=== PATIENT | male | born 1970 | race Caucasian/White ===

== ENCOUNTER 2020-11-29 15:27 | Outpatient (CLI) | payer OTHER, SELFPAY ==
--- NOTE | 2020-11-29 15:36 | XR_ITS ---
WS: [id number] LEFT KNEE: 3 VIEW(S) TECHNIQUE: AP, oblique(s) and lateral. HISTORY: LEFT KNEE PAIN COMPARISON: None available. No fracture or dislocation. No joint space narrowing or osteophytes. No joint effusion. There are a few scattered vascular calcifications posterior to the tibia. XR/XR knee LT 3V* [id number] IMPRESSION: Normal LEFT knee.
== END 2020-11-29 15:28 | disposition home or self-care (01) ==
PROVIDERS: Visit Provider Clinical Nurse Specialist Adult Health
DX: M25.562 Pain in left knee (principal)
CPT/HCPCS: 73562

== ENCOUNTER 2022-10-04 14:16 | Outpatient (CLI) | payer OTHER, SELFPAY ==
[2022-10-04 15:13] LABS: Basophils % 0.4 %; Eosinophils # 0.3 10^3/uL (0.0-0.8); Eosinophils % 3.5 %; Hematocrit 37.8 % (42.0-52.0); Hemoglobin 12.7 g/dL (11.7-16.6); Lymphocytes # 2.3 10^3/uL (0.8-4.8); Lymphocytes % 25.5 %; Mean Corpuscular HGB Conc 33.6 g/dL (30.0-36.0); Mean Corpuscular Hemoglobin 32.7 pg (28.0-34.0); Mean Corpuscular Volume 97.4 fl (80-94); Mean Platelet Volume 9.1 fL (7.4-10.4); Monocytes # 0.9 10^3/uL (0.2-0.9); Monocytes % 9.7 %; Neutrophils # 5.48 10^3/uL (1.8-7.7); Neutrophils % 60.5 %; Nucleated Red Blood Cells % 0 %; Platelet Count 184 10^3/cmm (130-400); Red Blood Count 3.88 10^6/uL (4.1-5.3); Red Cell Distribution Width 17.8 % (12.1-15.1); White Blood Count 9.1 10^3/uL (4.0-10.0)
[2022-10-04 15:33] LABS: Alanine Aminotransferase 33 U/L (0-41); Albumin Level 4.4 g/dL (3.5-5.2); Alkaline Phosphatase 82 U/L (40-130); Aspartate Amino Transferase 22 U/L (0-40); Blood Urea Nitrogen 13 mg/dL (6-20); Calcium 9.3 mg/dL (8.5-10.5); Carbon Dioxide 24 mmol/L (22-29); Chloride 105 mmol/L (98-107); Globulin 2.5 g/dL (1.3-4.6); Glomerular Filtration Rate 117.5 mL/min (90-130); Glucose 105 mg/dL (65-115); Osmolality Calculated 292 mOsm/kg (285-295); Sodium 141 mmol/L (136-145); Total Bilirubin 0.5 mg/dL (0.15-1.2); Total Protein 6.9 g/dL (6.6-8.7)
== END 2022-10-04 14:17 | disposition home or self-care (01) ==
PROVIDERS: Visit Provider Internal Medicine
DX: C71.9 Malignant neoplasm of brain, unspecified (principal)
CPT/HCPCS: 36415; 80053; 85025

== ENCOUNTER 2022-10-11 14:16 | Outpatient (RCR) | payer OTHER, SELFPAY ==
[2022-10-11 14:49] LABS: Basophils % 0.2 %; Eosinophils # 0.2 10^3/uL (0.0-0.8); Eosinophils % 2.8 %; Hematocrit 38.4 % (42.0-52.0); Hemoglobin 12.9 g/dL (11.7-16.6); Lymphocytes % 22.8 %; Mean Corpuscular HGB Conc 33.6 g/dL (30.0-36.0); Mean Corpuscular Hemoglobin 32.6 pg (28.0-34.0); Mean Platelet Volume 8.9 fL (7.4-10.4); Monocytes # 0.8 10^3/uL (0.2-0.9); Monocytes % 9.2 %; Neutrophils # 5.61 10^3/uL (1.8-7.7); Neutrophils % 64.5 %; Nucleated Red Blood Cells % 0 %; Platelet Count 200 10^3/cmm (130-400); Red Blood Count 3.96 10^6/uL (4.1-5.3); Red Cell Distribution Width 15.9 % (12.1-15.1); White Blood Count 8.7 10^3/uL (4.0-10.0)
[2022-10-11 15:08] LABS: Alanine Aminotransferase 23 U/L (0-41); Albumin Level 4.3 g/dL (3.5-5.2); Alkaline Phosphatase 81 U/L (40-130); Anion Gap 15.8 (5-19); Aspartate Amino Transferase 17 U/L (0-40); Blood Urea Nitrogen 13 mg/dL (6-20); Calcium 9.1 mg/dL (8.5-10.5); Carbon Dioxide 24 mmol/L (22-29); Chloride 104 mmol/L (98-107); Globulin 2.5 g/dL (1.3-4.6); Glomerular Filtration Rate 117.5 mL/min (90-130); Glucose 124 mg/dL (65-115); Osmolality Calculated 292 mOsm/kg (285-295); Potassium 3.8 mmol/L (3.5-5.1); Sodium 140 mmol/L (136-145); Total Bilirubin 0.4 mg/dL (0.15-1.2); Total Protein 6.8 g/dL (6.6-8.7)
== END 2022-10-13 23:59 | disposition home or self-care (01) ==
LOC: LAB 14:16
PROVIDERS: Visit Provider Internal Medicine
DX: C71.9 Malignant neoplasm of brain, unspecified (principal)
CPT/HCPCS: 80053; 85025

== ENCOUNTER 2022-10-18 14:19 | Outpatient (RCR) | payer OTHER, SELFPAY ==
[2022-10-18 14:41] LABS: Basophils % 0.3 %; Eosinophils # 0.3 10^3/uL (0.0-0.8); Hematocrit 39.1 % (42.0-52.0); Lymphocytes # 2.1 10^3/uL (0.8-4.8); Lymphocytes % 26.8 %; Mean Corpuscular HGB Conc 33.2 g/dL (30.0-36.0); Mean Corpuscular Hemoglobin 32.7 pg (28.0-34.0); Mean Corpuscular Volume 98.5 fl (80-94); Mean Platelet Volume 8.6 fL (7.4-10.4); Monocytes # 0.8 10^3/uL (0.2-0.9); Neutrophils # 4.51 10^3/uL (1.8-7.7); Neutrophils % 58.4 %; Nucleated Red Blood Cells % 0 %; Platelet Count 186 10^3/cmm (130-400); Red Blood Count 3.97 10^6/uL (4.1-5.3); White Blood Count 7.7 10^3/uL (4.0-10.0)
[2022-10-18 15:04] LABS: Alanine Aminotransferase 27 U/L (0-41); Albumin Level 4.2 g/dL (3.5-5.2); Alkaline Phosphatase 79 U/L (40-130); Aspartate Amino Transferase 22 U/L (0-40); Blood Urea Nitrogen 13 mg/dL (6-20); Calcium 9.4 mg/dL (8.5-10.5); Carbon Dioxide 25 mmol/L (22-29); Chloride 105 mmol/L (98-107); Globulin 2.4 g/dL (1.3-4.6); Glomerular Filtration Rate 117.5 mL/min (90-130); Glucose 126 mg/dL (65-115); Osmolality Calculated 294 mOsm/kg (285-295); Sodium 141 mmol/L (136-145); Total Bilirubin 0.4 mg/dL (0.15-1.2); Total Protein 6.6 g/dL (6.6-8.7)
== END 2022-11-13 23:59 | disposition home or self-care (01) ==
LOC: LAB 14:19
PROVIDERS: Visit Provider Internal Medicine
DX: C71.9 Malignant neoplasm of brain, unspecified (principal)
CPT/HCPCS: 80053; 85025

== ENCOUNTER 2022-12-01 07:47 | Emergency (ER) | payer OTHER, SELFPAY ==
--- NOTE | 2022-12-01 07:51 | ED_ITS ---
HPI - Fever General: Chief Complaint: Fever Stated Complaint: cancer pt w/fever sent in by [facility] doctor Time Seen by Provider: 12/01/22 07:50 History of Present Illness: Mr Serrano is a 52-year-old gentleman with significant past medical history of glioblastoma on chemotherapy with Temodar presenting to the emergency department due to fever. He has been at his baseline health and developed fever last night with temperature of 101. Feels generally unwell and fatigued however that has been somewhat ongoing. He denies specific focal infectious symptoms. Denies sick contacts. Last dose of chemotherapy was approximately 1 month ago and he is scheduled to have chemotherapy tomorrow. No other specific changes in health, exacerbating, or alleviating factors identified. Prior biopsy and July. No recent surgical procedures. Sounds like lesion is nonresectable. Patient currently follows with the [facility] through [facility] with your oncologist Dr. Pankaj Lopez. Pertinent past history: immunosuppression (Chemotherapy) and other Onset (ago): hour(s) Exacerbating factors: nothing Relieving factors: nothing Associated symptoms: Reports no associated symptoms Review of Systems General: Reports: 10 or more systems reviewed and unremarkable except in HPI and below PFSH ED PFSH: Medical History Glioblastoma Physical Exam Const: COMMON NORMALS: alert GENERAL APPEARANCE: cooperative and well developed HENMT: COMMON NORMALS: normocephalic and atraumatic HEAD & SCALP: normocephalic and atraumatic Eye: COMMON NORMALS: conjunctivae normal CONJUNCTIVA: Yes conjunctivae normal SCLERA: sclerae normal Neck/C-Spine: COMMON NORMALS: supple GENERAL: Yes trachea midline Resp: COMMON NORMALS: clear to auscultation bilaterally EFFORT & INSPECTION: Yes able to speak in complete sentences AUSCULTATION: clear to auscultation bilaterally Cardio: COMMON NORMALS: regular rate and regular rhythm RATE: regular rate RHYTHM: regular rhythm GI: COMMON NORMALS: Soft to palpation PALPATION: Yes Soft to palpation and No Tenderness to palpation present (GI) Extremity: GENERAL: Yes normal exam except as noted and No edema Neuro: COMMON NORMALS: moves all extremities SENSORIUM/ORIENTATION: Yes alert and No Orientation impaired Psych: COMMON NORMALS: mental status grossly normal and Normal thought process present THOUGHT PROCESS: Normal thought process present Course Vital Signs: Vital signs: Vital Signs Temperature 98.0 F 12/01/22 11:10 Pulse Rate 86 12/01/22 11:10 Respiratory Rate 16 12/01/22 11:10 Blood Pressure 115/77 12/01/22 11:10 Pulse Oximetry 94 12/01/22 11:10 Oxygen Delivery Me thod Room Air 12/01/22 07:54 MDM - Fever Medical Decision Making 52-year-old gentleman with history of cancer presenting due to fever. Exam as above. Patient is nontoxic and there is no meningismus. Labs notable for no leukocytosis, normal hemoglobin and platelet count. Metabolic panel obtained with dehydration. No UTI. Viral panel negative. Chest x-ray with patchy left lung base possible infiltrate, no pneumothorax. Patient does not have evidence of sepsis and last dose of chemotherapy was 1 month ago. Discussed with oncology team, we will treat with Levaquin and strict return precautions/follow-up instructions given. The results of ED evaluation were discussed with the patient including prescriptions and/or symptomatic cares (if applicable) including appropriate and responsible use, followup plan, and return precautions. The patient verbalized understanding and felt safe for discharge. Medical Records I reviewed the patient's medical records. Lab Data I reviewed the patient's lab results. 12/01/22 08:43 12/01/22 08:25 Radiology Impressions Chest X-Ray 12/01/22 08:02 IMPRESSION: There is some patchy bandlike opacification indicative of early inflammation of the left lung base. No lobar type consolidation or cardiac decompensation is appreciated. Laboratory Results WBC 8.7 10^3/uL (4.0-10.0) 12/01/22 08:43 RBC 4.54 10^6/uL (4.1-5.3) 12/01/22 08:43 Hgb 14.9 g/dL (11.7-16.6) 12/01/22 08:43 Hct 43.4 % (42.0-52.0) 12/01/22 08:43 MCV 95.6 fl (80-94) H 12/01/22 08:43 MCH 32.8 pg (28.0-34.0) 12/01/22 08:43 MCHC 34.3 g/dL (30.0-36.0) 12/01/22 08:43 RDW 12.2 % (12.1-15.1) 12/01/22 08:43 Plt Count 151 10^3/cmm (130-400) 12/01/22 08:43 MPV 8.8 fL (7.4-10.4) 12/01/22 08:43 Neut % (Auto) 66.1 % 12/01/22 08:43 Lymph % (Auto) 17.6 % 12/01/22 08:43 [place] % (Auto) 11.8 % 12/01/22 08:43 Eos % (Auto) 3.2 % 12/01/22 08:43 Baso % (Auto) 0.7 % 12/01/22 08:43 Neut # (Auto) 5.73 10^3/uL (1.8-7.7) 12/01/22 08:43 Lymph # (Auto) 1.5 10^3/uL (0.8-4.8) 12/01/22 08:43 [place] # (Auto) 1.0 10^3/uL (0.2-0.9) H 12/01/22 08:43 Eos # (Auto) 0.3 10^3/uL (0.0-0.8) 12/01/22 08:43 Baso # (Auto) 0.1 10^3/uL (0.0-0.1) 12/01/22 08:43 Nucleated RBC % (auto) 0 % 12/01/22 08:43 Nucleated RBCs # 0.0 /100WBC 12/01/22 08:43 Sodium 131 mmol/L (136-145) L 12/01/22 08:25 Potassium 4.1 mmol/L (3.5-5.1) 12/01/22 08:25 Chloride 97 mmol/L (98-107) L 12/01/22 08:25 Carbon Dioxide 20 mmol/L (22-29) L 12/01/22 08:25 Anion Gap 18.1 (5-19) 12/01/22 08:25 BUN 15 mg/dL (6-20) 12/01/22 08:25 Creatinine 0.8 mg/dL (0.7-1.2) 12/01/22 08:25 GFR Calculation 100.7 mL/min (90-130) 12/01/22 08:25 Glucose 87 mg/dL (65-115) 12/01/22 08:25 Calculated Osmolality 272 mOsm/kg (285-295) L 12/01/22 08:25 Calcium 9.3 mg/dL (8.5-10.5) 12/01/22 08:25 Total Bilirubin 0.3 mg/dL (0.15-1.2) 12/01/22 08:25 AST 21 U/L (0-40) 12/01/22 08:25 ALT 28 U/L (0-41) 12/01/22 08:25 Alkaline Phosphatase 60 U/L (40-130) 12/01/22 08:25 C-Reactive Protein 3.0 mg/L (0.0-4.9) 12/01/22 08:25 Total Protein 6.5 g/dL (6.6-8.7) L 12/01/22 08:25 Albumin 4.1 g/dL (3.5-5.2) 12/01/22 08:25 Globulin 2.4 g/dL (1.3-4.6) 12/01/22 08:25 Procalcitonin 0.03 ng/mL (0-0.5) 12/01/22 08:25 Urine Color Straw (Yellow) 12/01/22 09:35 Urine Appearance Clear (CLEAR) 12/01/22 09:35 Urine pH 6.5 (5-7) 12/01/22 09:35 Ur Specific [place] 1.010 (1.005-1.030) 12/01/22 09:35 Urine Protein Neg (Negative) 12/01/22 09:35 Urine Glucose (UA) Norm (Normal) 12/01/22 09:35 Urine Ketones Negative (Negative) 12/01/22 09:35 Urine Blood Neg (Negative) 12/01/22 09:35 Urine Nitrate Negative (Negative) 12/01/22 09:35 Urine Bilirubin Neg (Negative) 12/01/22 09:35 Urine Urobilinogen Norm mg/dL (Negative) 12/01/22 09:35 Ur Leukocyte Esterase Negative (Negative) 12/01/22 09:35 Nasal Influ A H1 2008 PCR Not detected (NOT DETECT) 12/01/22 08:11 Adenovirus (PCR) Not detected (NOT DETECT) 12/01/22 08:11 C. pneumoniae DNA (PCR) Not detected (NOT DETECT) 12/01/22 08:11 Coronavirus 229E (PCR) Not detected (NOT DETECT) 12/01/22 08:11 Human Metapneumovir PCR Not detected (NOT DETECT) 12/01/22 08:11 Influenza A (H1) PCR Not detected (NOT DETECT) 12/01/22 08:11 Influenza A (H3) PCR Not detected (NOT DETECT) 12/01/22 08:11 Influenza Type A (PCR) Not detected (NOT DETECT) 12/01/22 08:11 Influenza Type B (PCR) Not detected (NOT DETECT) 12/01/22 08:11 M. pneumoniae (PCR) Not detected (NOT DETECT) 12/01/22 08:11 Parainfluenza 1 (PCR) Not detected (NOT DETECT) 12/01/22 08:11 Parainfluenza 2 (PCR) Not detected (NOT DETECT) 12/01/22 08:11 Parainfluenza 3 (PCR) Not detected (NOT DETECT) 12/01/22 08:11 Parainfluenza 4 (PCR) Not detected (NOT DETECT) 12/01/22 08:11 RSV Type A (PCR) Not detected (NOT DETECT) 12/01/22 08:11 RSV Type B (PCR) Not detected (NOT DETECT) 12/01/22 08:11 Entero/Rhino (PCR) Not detected (NOT DETECT) 12/01/22 08:11 SARS-CoV-2 (PCR) Not detected (NOT DETECT) 12/01/22 08:11 Discharge Plan Discharge Patient Disposition: Home Clinical Impression: Fever, Immunocompromised state, Mild dehydration, Pulmonary infiltrate Condition: Stable Prescriptions: New levofloxacin 750 mg tablet 750 mg PO DAILY 10 Days Qty: 10 0RF Discharge Orders: Discharge ED (Routine); Ordered 12/01/22 Ordered By: Will Estrada Patient Instructions: Fever in Adults (ED) Activity Restrictions/Additional Instructions: Thank you for visiting the emergency department. You were seen evaluated for fever. The most likely cause of your symptoms is unclear. Chest x-ray did reveal, as discussed, possible early pneumonia which will be treated with antibiotics Please contact your oncologist prior to further chemotherapy. Please ensure that you are staying hydrated. You may use [id number] medications such as acetaminophen and ibuprofen for pain however please do not exceed the daily recommended dosage as listed on the packaging and please keep in mind that many namebrand medications contain the same active ingredients. Please avoid these medications if previously instructed to do so by another physician due to other underlying medical condition. Return to the emergency department for worsening symptoms or anything else that you are concerned about and feel needs emergency department evaluation. Coding Level of Care Code ED [employer] for Camila Chery
[2022-12-01 07:54] VITALS: BP 111/82; PULSE 92; RESP 15; TEMP 37.2; O2SAT 96; BMI 28.2
--- NOTE | 2022-12-01 08:02 | XRR_ITS ---
PROCEDURE INFORMATION: Exam: XR Chest Exam date and time: 12/01/2022 8:36 AM Age: 52 years old Clinical indication: Fever; Additional info: Cancer patient, fever.No history of trauma or recent surgery is provided. TECHNIQUE: Imaging protocol: Radiologic exam of the chest. 1image(s) are provided. Views: 1 view. COMPARISON: No relevant prior studies available. FINDINGS: Lungs: There is some patchy and bandlike opacification of the left lung base. No lobar type consolidation is appreciated. Pleural spaces: No pneumothorax or significant pleural effusion is appreciated. Heart/Mediastinum: The cardiomediastinal silhouette is upper normal in size.This can be seen with central averaging as well as sveta enlargement.No cardiac decompensation is appreciated. Diaphragm: There is slight asymmetric right hemidiaphragm elevation. Bones/joints: Osseous alignment is maintained.No displaced fracture or dislocation is appreciated. There is some mild chronic degeneration widening of the left acromioclavicular junction predominantly. There is some mild thoracic spondylosis present overall. Soft tissues: No radiopaque foreign body or subcutaneous emphysema is appreciated. XR/XR chest 1V portable [id number] IMPRESSION: There is some patchy bandlike opacification indicative of early inflammation of the left lung base. No lobar type consolidation or cardiac decompensation is appreciated.
[2022-12-01 08:32] VITALS: PULSE 90; O2SAT 95
[2022-12-01 09:01] LABS: Basophils # 0.1 10^3/uL (0.0-0.1); Basophils % 0.7 %; Eosinophils # 0.3 10^3/uL (0.0-0.8); Eosinophils % 3.2 %; Hematocrit 43.4 % (42.0-52.0); Hemoglobin 14.9 g/dL (11.7-16.6); Lymphocytes # 1.5 10^3/uL (0.8-4.8); Lymphocytes % 17.6 %; Mean Corpuscular HGB Conc 34.3 g/dL (30.0-36.0); Mean Corpuscular Hemoglobin 32.8 pg (28.0-34.0); Mean Corpuscular Volume 95.6 fl (80-94); Mean Platelet Volume 8.8 fL (7.4-10.4); Monocytes % 11.8 %; Neutrophils # 5.73 10^3/uL (1.8-7.7); Neutrophils % 66.1 %; Nucleated Red Blood Cells % 0 %; Platelet Count 151 10^3/cmm (130-400); Red Blood Count 4.54 10^6/uL (4.1-5.3); Red Cell Distribution Width 12.2 % (12.1-15.1); White Blood Count 8.7 10^3/uL (4.0-10.0)
[2022-12-01 09:11] LABS: Alanine Aminotransferase 28 U/L (0-41); Albumin Level 4.1 g/dL (3.5-5.2); Alkaline Phosphatase 60 U/L (40-130); Anion Gap 18.1 (5-19); Aspartate Amino Transferase 21 U/L (0-40); Blood Urea Nitrogen 15 mg/dL (6-20); Calcium 9.3 mg/dL (8.5-10.5); Carbon Dioxide 20 mmol/L (22-29); Chloride 97 mmol/L (98-107); Globulin 2.4 g/dL (1.3-4.6); Glomerular Filtration Rate 100.7 mL/min (90-130); Glucose 87 mg/dL (65-115); Osmolality Calculated 272 mOsm/kg (285-295); Potassium 4.1 mmol/L (3.5-5.1); Sodium 131 mmol/L (136-145); Total Bilirubin 0.3 mg/dL (0.15-1.2); Total Protein 6.5 g/dL (6.6-8.7)
[2022-12-01 09:16] LABS: Procalcitonin 0.03 ng/mL (0-0.5)
[2022-12-01 09:43] LABS: Add Urine Microscopic? NO; Charge for UA Resulting for Rev
[2022-12-01 09:44] LABS: Bilirubin Urine Neg (Negative); Blood Urine Neg (Negative); Glucose Urine UA Norm (Normal); Ketones Urine Negative (Negative); Leukocyte Esterase Urine Negative (Negative); Nitrate Urine Negative (Negative); Protein Urine Neg (Negative); Urine Appearance Clear (CLEAR); Urine Color Straw (Yellow); Urobilinogen Urine Norm (Negative); pH Urine 6.5 (5-7)
[2022-12-01 10:18] LABS: Adenovirus Not Detected (NOT DETECT); Chlamydia Pneumoniae Not Detected (NOT DETECT); Coronavirus 229E,HKU1,NL63,OC4 Not Detected (NOT DETECT); Human Metapneumovirus Not Detected (NOT DETECT); Human Rhinovirus/Enterovirus Not Detected (NOT DETECT); Influenza A Not Detected (NOT DETECT); Influenza A H1 Not Detected (NOT DETECT); Influenza A H1-2009 Not Detected (NOT DETECT); Influenza A H3 Not Detected (NOT DETECT); Influenza B Not Detected (NOT DETECT); Mycoplasma Pneumoniae Not Detected (NOT DETECT); Parainfluenza Virus Type 1 Not Detected (NOT DETECT); Parainfluenza Virus Type 2 Not Detected (NOT DETECT); Parainfluenza Virus Type 3 Not Detected (NOT DETECT); Parainfluenza Virus Type 4 Not Detected (NOT DETECT); Respiratory Syncytial Virus A Not Detected (NOT DETECT); Respiratory Syncytial Virus B Not Detected (NOT DETECT); SARS-COV-2 Not Detected (NOT DETECT)
[2022-12-01 11:10] VITALS: BP 115/77; PULSE 86; RESP 16; TEMP 36.7; O2SAT 94
== END 2022-12-01 11:12 | disposition home or self-care (01) ==
PROVIDERS: Emergency Provider Emergency Medicine; PCP Internal Medicine
DX: R50.9 Fever, unspecified (principal); D84.9 Immunodeficiency, unspecified; E86.0 Dehydration; R91.8 Other nonspecific abnormal finding of lung field; Z20.822 Contact with and (suspected) exposure to COVID-19; Z92.21 Personal history of antineoplastic chemotherapy; Z85.841 Personal history of malignant neoplasm of brain
CPT/HCPCS: 71045; 80053; 81003; 84145; 85025; 86140; 87040; 87486; 87581; 87633; 99284

== ENCOUNTER 2023-01-01 13:16 | Outpatient (CLI) | payer OTHER, SELFPAY ==
[2023-01-01 13:47] LABS: Hematocrit 38.9 % (42.0-52.0); Hemoglobin 13.9 g/dL (11.7-16.6); Lymphocytes # 0.6 10^3/uL (0.8-4.8); Lymphocytes % 8.6 %; Mean Corpuscular HGB Conc 35.7 g/dL (30.0-36.0); Mean Corpuscular Hemoglobin 32.4 pg (28.0-34.0); Mean Corpuscular Volume 90.7 fl (80-94); Mean Platelet Volume 9.8 fL (7.4-10.4); Monocytes # 0.3 10^3/uL (0.2-0.9); Monocytes % 4.8 %; Neutrophils # 5.94 10^3/uL (1.8-7.7); Nucleated Red Blood Cells % 0 %; Platelet Count 86 10^3/cmm (130-400); Red Blood Count 4.29 10^6/uL (4.1-5.3); Red Cell Distribution Width 12.7 % (12.1-15.1); White Blood Count 6.9 10^3/uL (4.0-10.0)
[2023-01-02 21:45] LABS: Absolute CD4 + Cells 138 cells/uL (490-1740); Absolute Lymphocytes 625 cells/uL (850-3900); Absoulte CD8+Cells 160 cells/uL (180-1170); CD4/CD8 Ratio 0.87 (0.86-5.00); Percent CD8 26 % (12-42); Percentage CD4 22 % (30-61)
== END 2023-01-01 13:17 | disposition home or self-care (01) ==
LOC: LAB 13:24
PROVIDERS: PCP Internal Medicine; Visit Provider Internal Medicine
DX: C71.9 Malignant neoplasm of brain, unspecified (principal)
CPT/HCPCS: 36415; 85025; 86360

== ENCOUNTER 2023-01-08 13:05 | Outpatient (CLI) | payer OTHER, SELFPAY ==
[2023-01-08 13:52] LABS: Basophils % 0.1 %; Eosinophils % 0.1 %; Lymphocytes # 0.6 10^3/uL (0.8-4.8); Lymphocytes % 6.8 %; Mean Corpuscular HGB Conc 35.9 g/dL (30.0-36.0); Mean Corpuscular Hemoglobin 32.9 pg (28.0-34.0); Mean Corpuscular Volume 91.5 fl (80-94); Mean Platelet Volume 9.7 fL (7.4-10.4); Monocytes # 0.3 10^3/uL (0.2-0.9); Monocytes % 3.7 %; Neutrophils # 7.43 10^3/uL (1.8-7.7); Nucleated Red Blood Cells % 0 %; Platelet Count 111 10^3/cmm (130-400); Red Blood Count 4.26 10^6/uL (4.1-5.3); Red Cell Distribution Width 14.3 % (12.1-15.1); White Blood Count 8.4 10^3/uL (4.0-10.0)
[2023-01-09 21:30] LABS: Absolute CD4 + Cells 116 cells/uL (490-1740); Absolute Lymphocytes 651 cells/uL (850-3900); Absoulte CD8+Cells 145 cells/uL (180-1170); CD4/CD8 Ratio 0.81 (0.86-5.00); Percent CD8 22 % (12-42); Percentage CD4 18 % (30-61)
== END 2023-01-08 13:06 | disposition home or self-care (01) ==
PROVIDERS: PCP Internal Medicine; Visit Provider Internal Medicine
DX: C71.9 Malignant neoplasm of brain, unspecified (principal)
CPT/HCPCS: 36415; 85025; 86360

== ENCOUNTER 2023-02-12 13:13 | Outpatient (CLI) | payer OTHER, SELFPAY ==
[2023-02-12 14:03] LABS: Basophils % 0.6 %; Eosinophils # 0.1 10^3/uL (0.0-0.8); Eosinophils % 3.8 %; Hematocrit 33.6 % (37-53); Lymphocytes # 1.1 10^3/uL (0.8-4.8); Lymphocytes % 33.2 %; Mean Corpuscular HGB Conc 34.8 g/dL (30-55); Mean Corpuscular Hemoglobin 35.6 pg (27-33); Mean Corpuscular Volume 102.1 fl (82-101); Mean Platelet Volume 9.5 fL (7.4-10.4); Monocytes # 0.5 10^3/uL (0.2-0.9); Monocytes % 17.1 %; Neutrophils # 1.39 10^3/uL (1.8-7.7); Nucleated Red Blood Cells % 0 %; Platelet Count 92 10^3/cmm (157-399); Red Blood Count 3.29 10^6/uL (3.85-5.65); White Blood Count 3.16 10^3/uL (3.29-11.43)
[2023-02-12 14:25] LABS: Alanine Aminotransferase 60 U/L (0-41); Albumin Level 4.1 g/dL (3.5-5.2); Alkaline Phosphatase 74 U/L (40-130); Anion Gap 14.1 (5-19); Aspartate Amino Transferase 43 U/L (0-40); Blood Urea Nitrogen 21 mg/dL (6-20); Calcium 9.2 mg/dL (8.5-10.5); Carbon Dioxide 25 mmol/L (22-29); Chloride 108 mmol/L (98-107); Globulin 2.8 g/dL (1.3-4.6); Glomerular Filtration Rate 87.9 mL/min (90-130); Glucose 112 mg/dL (65-115); Osmolality Calculated 300 mOsm/kg (285-295); Potassium 4.1 mmol/L (3.5-5.1); Sodium 143 mmol/L (136-145); Total Bilirubin 0.8 mg/dL (0.15-1.2); Total Protein 6.9 g/dL (6.6-8.7)
[2023-02-12 14:31] LABS: Slide Review Slide Review Perform
== END 2023-02-12 13:14 | disposition home or self-care (01) ==
LOC: LAB 13:17
PROVIDERS: PCP Internal Medicine; Visit Provider Internal Medicine
DX: C71.9 Malignant neoplasm of brain, unspecified (principal)
CPT/HCPCS: 36415; 80053; 85025

== ENCOUNTER 2023-03-30 22:00 | Emergency (ER) | payer OTHER, SELFPAY ==
--- NOTE | 2023-03-30 22:02 | XRR_ITS ---
PROCEDURE INFORMATION: Exam: XR Chest Exam date and time: 03/30/2023 10:33 PM Age: 52 years old Clinical indication: Patient HX: Fever; Chills; HX gleoblastoma TECHNIQUE: Imaging protocol: Radiologic exam of the chest. Views: 1 view. COMPARISON: CR (CHEST, ) 12/01/2022 8:36 AM FINDINGS: Lungs: Irregular opacities in the left lung base. Pleural spaces: Unremarkable. No pleural effusion. No pneumothorax. Heart/Mediastinum: Unremarkable. No cardiomegaly. Bones/joints: Unremarkable. XR/XR chest 1V portable [id number] IMPRESSION: Irregular opacities in the left lung base.
[2023-03-30 22:10] VITALS: BP 144/92; PULSE 83; RESP 16; TEMP 36.8; O2SAT 98; BMI 27.3
--- NOTE | 2023-03-30 22:21 | W.ED.GENADLT ---
HPI - General Adult General: Chief complaint: General Medical Stated complaint: fever,chills/cancer pt Time Seen by Provider: 03/30/23 22:05 Source: patient and family Mode of arrival: ambulatory Limitations: no limitations History of Present Illness: Patient is a 52-year-old male who presents the emergency room with fever and chills. Patient states that he went to [place] for a Avastin treatment on Friday. Patient reports that today he woke up and had a 101.3 fever and developed chills today And was advised by [place] cancer facility to be evaluated in the emergency room. Patient denies any headaches, blurry vision, nausea or vomiting at this time. Denies any other complaints. Associated symptoms: Deny chest pain, dyspnea, headache(s), nausea, rash or vomiting Review of Systems Const: Reports: fever(s), chills and body aches; Denies: change in appetite Eyes: Denies: blurry vision or eye discomfort ENMT: Denies: throat pain or dental pain Card: Denies: chest pain Resp: Denies: dyspnea GI: Denies: abdominal pain, nausea, vomiting or diarrhea : Denies: dysuria Musc: Denies: neck pain or back pain Skin/Breast: Denies: rash Neuro: Denies: headache(s) Psych: Denies: depression Kushal/Lymph: Denies: easy bruising All/Imm: Denies: urticaria PFSH ED PFSH: Medical History Glioblastoma Physical Exam Const: COMMON NORMALS: no acute distress, patient oriented x3 and healthy appearing HENMT: COMMON NORMALS: normocephalic and atraumatic HEAD & SCALP: normocephalic and atraumatic Eye: COMMON NORMALS: Equal, round and reactive pupils present and EOMs intact bilaterally PUPIL: Yes Equal, round and reactive pupils present Neck/C-Spine: COMMON NORMALS: full ROM and supple Chest: COMMONS NORMALS: normal inspection of the chest and normal palpation of entire chest wall Resp: COMMON NORMALS: normal respiratory effort, No retractions, No use of accessory muscles and clear to auscultation bilaterally AUSCULTATION: clear to auscultation bilaterally Cardio: COMMON NORMALS: regular rate, regular rhythm and No murmurs present (Cardio) RATE: regular rate RHYTHM: regular rhythm GI: COMMON NORMALS: Normal to inspection, nondistended, normoactive bowel sounds present, Soft to palpation, non-tender and no masses PALPATION: Yes Soft to palpation Extremity: COMMON NORMALS: normal to inspection and full ROM Neuro: COMMON NORMALS: patient oriented x3, moves all extremities and no focal motor deficits Psych: COMMON NORMALS: mental status grossly normal, Normal thought process present and cooperative THOUGHT PROCESS: Normal thought process present Skin: COMMON NORMALS: no rashes or lesions noted and no wounds GENERAL SKIN EXAM: no rashes or lesions noted Course Vital Signs: Vital signs: Vital Signs Temperature 98.3 F 03/30/23 22:10 Pulse Rate 83 03/30/23 22:10 Respiratory Rate 16 03/30/23 22:10 Blood Pressure 144/92 03/30/23 22:10 Pulse Oximetry 98 03/30/23 22:10 Oxygen Delivery Me thod Room Air 03/30/23 22:10 MDM - General Adult Medical Decision Making Patient presents here with cough he did have a one-time fever at home he is in no distress here oxygen levels normal x-ray shows a likely left lower lobe pneumonia we will start him on doxycycline he is stable for discharge he is to follow-up with PCP and return if worsening he understands agrees to plan. Medical Records I reviewed the patient's medical records. Lab Data I reviewed the patient's lab results. 03/30/23 22:25 03/30/23 22:25 Radiology Impressions Chest X-Ray 03/30/23 22:02 IMPRESSION: Irregular opacities in the left lung base. Laboratory Results WBC 6.49 10^3/uL (3.29-11.43) 03/30/23 22:25 RBC 3.62 10^6/uL (3.85-5.65) L 03/30/23 22:25 Hgb 12.30 g/dL (11.27-16.99) 03/30/23 22:25 Hct 36.3 % (37-53) L 03/30/23 22:25 MCV 100.3 fl (82-101) 03/30/23 22:25 MCH 34.0 pg (27-33) H 03/30/23 22: MCHC 33.9 g/dL (30-55) 03/30/23 22:25 RDW 11.7 % (12.1-15.1) L 03/30/23 22:25 Plt Count 200 10^3/cmm (157-399) 03/30/23 22:25 MPV 9.6 fL (7.4-10.4) 03/30/23 22:25 Neut % (Auto) 58.7 % 03/30/23 22: Lymph % (Auto) 24.3 % 03/30/23 22:25 [place] % (Auto) 10.0 % 03/30/23 22:25 Eos % (Auto) 5.9 % 03/30/23 22:25 Baso % (Auto) 0.8 % 03/30/23: Neut # (Auto) 3.81 10^3/uL (1.8-7.7) 03/30/23 22: Lymph # (Auto) 1.6 10^3/uL (0.8-4.8) 03/30/23 22: [place] # (Auto) 0.7 10^3/uL (0.2-0.9) 03/30/23 22:25 Eos # (Auto) 0.4 10^3/uL (0.0-0.8) 03/30/23 22:25 Baso # (Auto) 0.1 10^3/uL (0.0-0.1) 03/30/23 22:25 Nucleated RBC % (auto) 0 % 03/30/23: Nucleated RBCs # 0.0 /100WBC 03/30/23 22:25 Sodium 144 mmol/L (136-145) 03/30/23 22:25 Potassium 3.7 mmol/L (3.5-5.1) 03/30/23 22:25 Chloride 108 mmol/L (98-107) H 03/30/23 22:25 Carbon Dioxide 26 mmol/L (22-29) 03/30/23 22:25 Anion Gap 13.7 (5-19) 03/30/23 22:25 BUN 14 mg/dL (6-20) 03/30/23 22:25 Creatinine 0.9 mg/dL (0.7-1.2) 03/30/23 22:25 GFR Calculation 87.9 mL/min (90-130) L 03/30/23 22:25 Glucose 98 mg/dL (65-115) 03/30/23 22:25 Calculated Osmolality 298 mOsm/kg (285-295) H 03/30/23 22:25 Calcium 9.1 mg/dL (8.5-10.5) 03/30/23 22:25 Total Bilirubin 0.4 mg/dL (0.15-1.2) 03/30/23 22:25 AST 23 U/L (0-40) 03/30/23:25 ALT 25 U/L (0-41) 03/30/23 22:25 Alkaline Phosphatase 63 U/L (40-130) 03/30/23 22:25 Total Protein 6.6 g/dL (6.6-8.7) 03/30/23: Albumin 4.3 g/dL (3.5-5.2) 03/30/23: Globulin 2.3 g/dL (1.3-4.6) 03/30/23 22:25 Urine Color Keri (Yellow) 03/30/23 23: Urine Appearance Clear (CLEAR) 03/30/23 23: Urine pH 5 (5-7) 03/30/23 23:01 Ur Specific [place] 1.020 (1.005-1.030) 03/30/23 23: Urine Protein 1+ (Negative) H 03/30/23 23: Urine Glucose (UA) Norm (Normal) 03/30/23 23: Urine Ketones 1+ (Negative) H 03/30/23 23: Urine Blood Trace (Negative) H 03/30/23 23: Urine Nitrate Negative (Negative) 03/30/23 23: Urine Bilirubin 1+ (Negative) H 03/30/23 23: Urine Urobilinogen 4 mg/dL (Negative) H 03/30/23 23:01 Ur Leukocyte Esterase Trace (Negative) H 03/30/23 23: Urine RBC 0-4 /hpf (0-2) H 03/30/23 23: Urine WBC 0-4 /hpf (0-5) H 03/30/23 23:01 Ur Squamous Epith Cells Rare /hpf (0-5) 03/30/23 23: Amorphous Sediment Not Reportable 03/30/23 23: Urine Bacteria None /hpf (NONE) 03/30/23 23:01 Urine Mucus 4+ /hpf 03/30/23 23:01 SARS-CoV-2 Ag (Rapid) negative (Negative) 03/30/23 23:01 All radiology interpretation(s) finalized by discharge Discharge Plan Discharge Patient Disposition: Home Clinical Impression: Pneumonia Condition: Stable Prescriptions: New doxycycline hyclate 100 mg tablet 100 mg PO BID 7 Days Qty: 14 0RF Discharge Orders: Discharge ED (Routine); Ordered 03/30/23 Ordered By: Larissa Walker Discharge Diet: Advance as tolerated Discharge Activity: Resume usual activity Patient Instructions: Pneumonia (ED) Coding Level of Care Code ED [employer] for Camila Chery
[2023-03-30 22:32] LABS: Basophils # 0.1 10^3/uL (0.0-0.1); Basophils % 0.8 %; Eosinophils # 0.4 10^3/uL (0.0-0.8); Eosinophils % 5.9 %; Hematocrit 36.3 % (37-53); Lymphocytes # 1.6 10^3/uL (0.8-4.8); Lymphocytes % 24.3 %; Mean Corpuscular HGB Conc 33.9 g/dL (30-55); Mean Corpuscular Volume 100.3 fl (82-101); Mean Platelet Volume 9.6 fL (7.4-10.4); Monocytes # 0.7 10^3/uL (0.2-0.9); Neutrophils # 3.81 10^3/uL (1.8-7.7); Neutrophils % 58.7 %; Nucleated Red Blood Cells % 0 %; Platelet Count 200 10^3/cmm (157-399); Red Blood Count 3.62 10^6/uL (3.85-5.65); Red Cell Distribution Width 11.7 % (12.1-15.1); White Blood Count 6.49 10^3/uL (3.29-11.43)
[2023-03-30 22:56] LABS: Alanine Aminotransferase 25 U/L (0-41); Albumin Level 4.3 g/dL (3.5-5.2); Alkaline Phosphatase 63 U/L (40-130); Anion Gap 13.7 (5-19); Aspartate Amino Transferase 23 U/L (0-40); Blood Urea Nitrogen 14 mg/dL (6-20); Calcium 9.1 mg/dL (8.5-10.5); Carbon Dioxide 26 mmol/L (22-29); Chloride 108 mmol/L (98-107); Globulin 2.3 g/dL (1.3-4.6); Glomerular Filtration Rate 87.9 mL/min (90-130); Glucose 98 mg/dL (65-115); Osmolality Calculated 298 mOsm/kg (285-295); Potassium 3.7 mmol/L (3.5-5.1); Sodium 144 mmol/L (136-145); Total Bilirubin 0.4 mg/dL (0.15-1.2); Total Protein 6.6 g/dL (6.6-8.7)
[2023-03-30 23:19] LABS: Add Urine Microscopic? YES; Bilirubin Urine 1+ (Negative); Blood Urine Trace (Negative); Glucose Urine UA Norm (Normal); Ketones Urine 1+ (Negative); Leukocyte Esterase Urine Trace (Negative); Mucus Urine 4+ /hpf; Nitrate Urine Negative (Negative); Protein Urine 1+ (Negative); RBC Urine 0-4 /hpf (0-2); Squamous Epithelial Cell Urine RARE /hpf (0-5); Urine Appearance Clear (CLEAR); Urine Color Amber (Yellow); Urobilinogen Urine 4 mg/dL (Negative); WBC Urine 0-4 /hpf (0-5); pH Urine 5 (5-7)
[2023-03-30 23:20] LABS: Add Urine Culture? No
[2023-03-30 23:25] LABS: SARS Covid-2 Antigen negative (Negative)
[2023-03-30] MEDS: doxycycline 100 mg Tablet PO (23:46)
[2023-03-30 23:48] VITALS: BP 142/84; PULSE 83; RESP 16; O2SAT 96
[2023-03-30 23:50] VITALS: BP 142/84; PULSE 83; RESP 16; TEMP 36.8; O2SAT 96
== END 2023-03-30 23:51 | disposition home or self-care (01) ==
PROVIDERS: Emergency Provider Emergency Medicine
DX: J18.9 Pneumonia, unspecified organism (principal); Z11.52 Encounter for screening for COVID-19; C71.9 Malignant neoplasm of brain, unspecified; Z79.69 Long term (current) use of other immunomodulators and immunosuppressants
CPT/HCPCS: 36415; 71045; 80053; 81001; 85025; 87426; 99284

== ENCOUNTER 2023-04-01 17:36 | Emergency (ER) | payer OTHER, SELFPAY ==
--- NOTE | 2023-04-01 17:40 | CTR_ITS ---
PROCEDURE INFORMATION: Exam: CT Cervical Spine Without Contrast Exam date and time: 04/01/2023 6:48 PM Age: 52 years old Clinical indication: Injury or trauma; Fall; Blunt trauma TECHNIQUE: Imaging protocol: Computed tomography of the cervical spine without contrast. Radiation optimization: All CT scans at this facility use at least one of these dose optimization techniques: automated exposure control; mA and/or kV adjustment per patient size (includes targeted exams where dose is matched to clinical indication); or iterative reconstruction. REPORTING DATA: Count of CT and Cardiac NM exams in prior 12 months: This patient has received 0 known CTs and 0 known cardiac nuclear medicine studies in the 12 months prior to the current study. COMPARISON: CR (CHEST, ) 04/01/2023 6:10 PM RADIATION DOSE METRICS: Total DLP (mGy-cm): 266 FINDINGS: Bones/joints: Postsurgical change at the occiput with increased retrocerebellar CSF space. Corticated chronic posterior C1 defect and ossification may be congenital or postsurgical. No acute fracture. Normal alignment. Mild multilevel cervical spine degenerative changes without severe spinal canal stenosis or neural foraminal narrowing. Trachea: Minimal secretions within the imaged trachea. Lungs: Mild paraseptal emphysematous change of the right lung apex. Vasculature: Mild atherosclerotic calcification. Soft tissues: Unremarkable. CT/CT cervical spin wo con* [id number] IMPRESSION: 1. No acute fracture or traumatic listhesis. 2. Chronic and incidental findings as above.
--- NOTE | 2023-04-01 17:40 | XRR_ITS ---
PROCEDURE INFORMATION: Exam: XR Chest Exam date and time: 04/01/2023 6:10 PM Age: 52 years old Clinical indication: Injury or trauma; Fall; Blunt trauma (contusions or hematomas) TECHNIQUE: Imaging protocol: Radiologic exam of the chest. Views: 1 view. COMPARISON: 1. CR (CHEST, ) 03/30/2023 10:33 PM 2. CR (CHEST, ) 12/01/2022 8:36 AM FINDINGS: Lungs: Decreased density of left basilar opacification with more bandlike morphology. Mildly increased streaky medial right lung base opacification. Pleural spaces: No large pleural effusion or pneumothorax. Heart/Mediastinum: Unremarkable. No cardiomegaly. Bones/joints: Unremarkable. XR/XR chest 1V portable [id number] IMPRESSION: 1. Persistent but improved left basilar opacification and mildly increased right lung base opacification. Favor atelectasis. Pneumonia or aspiration could appear similar. 2. Possible small left pleural effusion.
--- NOTE | 2023-04-01 17:40 | CTR_ITS ---
PROCEDURE INFORMATION: Exam: CT Head Without Contrast Exam date and time: 04/01/2023 6:48 PM Age: 52 years old Clinical indication: Injury or trauma; Fall; Blunt trauma (contusions or hematomas); Prior surgery; Surgery date: 6+ months; Surgery type: Brain cancer TECHNIQUE: Imaging protocol: Computed tomography of the head without contrast. Radiation optimization: All CT scans at this facility use at least one of these dose optimization techniques: automated exposure control; mA and/or kV adjustment per patient size (includes targeted exams where dose is matched to clinical indication); or iterative reconstruction. REPORTING DATA: Count of CT and Cardiac NM exams in prior 12 months: This patient has received 0 known CTs and 0 known cardiac nuclear medicine studies in the 12 months prior to the current study. COMPARISON: No relevant prior studies available. RADIATION DOSE METRICS: Total DLP (mGy-cm): 1191 FINDINGS: Brain: Occiput and left calvarial postsurgical changes with increased retrocerebellar CSF space. Large zone of white matter hypoattenuation involving the entire left parietal, occipital, and temporal lobes as well as a portion of the left frontal lobe. More focal hypodense area at the left temporal lobe measures approximately 2.3 cm and involves the cortex with suggested denser peripheral nodule. There is a left medial posterior periventricular ovoid hyperdense focus measuring 1.2 x 0.4 cm on axial image 29 of series 4. An approximately 1 cm long hyperdense focus just anterior appears to be within the lateral ventricle atrium, possibly representing blood products versus calcified choroid plexus. Couple additional nearby smaller hyperdense foci also appear to be within the lateral ventricle, which shows focal narrowing at this level. There is thin curvilinear hyperdensity at the level of the posterior left sylvian fissure and more subtly at the overlying sulci, axial image 24 of series 4. There is 5 mm rightward midline shift. Mild bilateral ICA calcification. Cerebral ventricles: Asymmetric dilatation of the left occipital horn of the lateral ventricle posterior to the above-described intraventricular hyperdensities at the atrium. 5 mm rightward midline shift. Ventricles show otherwise normal caliber. Paranasal sinuses: Visualized sinuses are unremarkable. No fluid levels. Mastoid air cells: Visualized mastoid air cells are well aerated. Bones/joints: No acute fracture. Occiput and left calvarial postsurgical changes. Mild thinning at the right frontal outer table appears chronic. Soft tissues: Unremarkable. CT/CT head wo con* [id number] IMPRESSION: 1. Abnormal left cerebral findings in keeping with broad zone of vasogenic edema with suggested 2.3 cm temporal lobe lesion. 5 mm rightward midline shift. 2. Subarachnoid hemorrhage at the posterior sylvian fissure and overlying sulci, small intraparenchymal periventricular hemorrhage and adjacent intraventricular blood products. 3. Asymmetric dilatation of the left lateral ventricle occipital horn does raise possibility of localized obstructive hydrocephalus given above intraventricular blood products and ventricular narrowing. 4. Increased retrocerebellar CSF space may represent postsurgical change or space-occupying lesion such as arachnoid cyst. THIS REPORT CONTAINS FINDINGS THAT MAY BE CRITICAL TO PATIENT CARE. The findings were verbally communicated via telephone conference with GUSTAVO SMITH at 8:16 PM CDT on 04/01/2023. The findings were acknowledged and understood.
[2023-04-01 17:43] VITALS: BP 145/81; PULSE 91; RESP 18; TEMP 38.1; O2SAT 93; BMI 26.7
--- NOTE | 2023-04-01 18:14 | ED_ITS ---
HPI - General Adult General: Chief complaint: General Medical Stated complaint: Fall Time Seen by Provider: 04/01/23 17:38 Source: EMS Mode of arrival: EMS Limitations: no limitations History of Present Illness: 52-year-old male with a history of glioblastoma patient seen here 2 days ago diagnosed with pneumonia he has had some increasing confusion he had a fever today and had a fall also we did hit his head. Patient hears confused he is able answer most my questions appropriately but he is deftly more confused when I saw him 2 days ago denies any headache denies any severe dyspnea he has had a slight cough Associated symptoms: Reports confusion; Deny chest pain, dyspnea, headache(s), nausea, rash or vomiting Review of Systems Const: Reports: fever(s); Denies: chills, body aches or change in appetite Eyes: Denies: blurry vision or eye discomfort ENMT: Denies: throat pain or dental pain Card: Denies: chest pain Resp: Reports: non-productive cough; Denies: dyspnea GI: Denies: abdominal pain, nausea, vomiting or diarrhea : Denies: dysuria Musc: Denies: neck pain or back pain Skin/Breast: Denies: rash Neuro: Reports: confusion; Denies: headache(s) PFSH ED PFSH: Medical History Glioblastoma Physical Exam Const: COMMON NORMALS: no acute distress, patient oriented x3 and healthy appearing ORIENTATION/CONSCIOUSNESS: Yes confused OTHER: Answers most my questions appropriately but does have some confusion HENMT: COMMON NORMALS: normocephalic and atraumatic HEAD & SCALP: normocephalic and atraumatic Eye: COMMON NORMALS: Equal, round and reactive pupils present and EOMs intact bilaterally PUPIL: Yes Equal, round and reactive pupils present Neck/C-Spine: COMMON NORMALS: full ROM and supple Chest: COMMONS NORMALS: normal inspection of the chest and normal palpation of entire chest wall Resp: COMMON NORMALS: normal respiratory effort, No retractions, No use of accessory muscles and clear to auscultation bilaterally AUSCULTATION: clear to auscultation bilaterally Cardio: COMMON NORMALS: regular rate, regular rhythm and No murmurs present (Cardio) RATE: regular rate RHYTHM: regular rhythm GI: COMMON NORMALS: Normal to inspection, nondistended, normoactive bowel sounds present, Soft to palpation, non-tender and no masses PALPATION: Yes Soft to palpation Extremity: COMMON NORMALS: normal to inspection and full ROM Neuro: COMMON NORMALS: patient oriented x3, moves all extremities and no focal motor deficits OTHER: Slight confusion Psych: COMMON NORMALS: Normal thought process present and cooperative THOUGHT PROCESS: Normal thought process present Skin: COMMON NORMALS: no rashes or lesions noted and no wounds GENERAL SKIN EXAM: no rashes or lesions noted Course Vital Signs: Vital signs: Vital Signs Temperature 102.9 F H 04/01/23 20:15 Pulse Rate 91 04/01/23 20:15 Respiratory Rate 20 H 04/01/23 19:26 Blood Pressure 161/101 04/01/23 19:26 Pulse Oximetry 95 04/01/23 20:15 Oxygen Delivery Me thod Room Air 04/01/23 20:15 MDM - General Adult Medical Decision Making Patient presents for a subarachnoid hemorrhage likely from his fall and head injury he does have a fever here is likely from his pneumonia he was given IV antibiotics his blood pressures been normal he has had confusion here but he will follow commands protect his own airway I did speak to ER physician at [facility] will transfer there for higher level of care of neurosurgery and trauma Lab Data 04/01/23 18:11 04/01/23 18:11 Radiology Impressions Cervical Spine CT 04/01/23 17:40 IMPRESSION: 1. No acute fracture or traumatic listhesis. 2. Chronic and incidental findings as above. Chest X-Ray 04/01/23 17:40 IMPRESSION: 1. Persistent but improved left basilar opacification and mildly increased right lung base opacification. Favor atelectasis. Pneumonia or aspiration could appear similar. 2. Possible small left pleural effusion. Laboratory Results WBC 7.81 10^3/uL (3.29-11.43) 04/01/23 18:11 RBC 3.60 10^6/uL (3.85-5.65) L 04/01/23 18:11 Hgb 12.30 g/dL (11.27-16.99) 04/01/23 18:11 Hct 35.8 % (37-53) L 04/01/23 18:11 MCV 99.4 fl (82-101) 04/01/23 18:11 MCH 34.2 pg (27-33) H 04/01/23 18:11 MCHC 34.4 g/dL (30-55) 04/01/23 18:11 RDW 11.5 % (12.1-15.1) L 04/01/23 18:11 Plt Count 173 10^3/cmm (157-399) 04/01/23 18:11 MPV 9.3 fL (7.4-10.4) 04/01/23 18:11 Neut % (Auto) 73.6 % 04/01/23 18:11 Lymph % (Auto) 13.2 % 04/01/23 18:11 [place] % (Auto) 11.7 % 04/01/23 18:11 Eos % (Auto) 0.8 % 04/01/23 18:11 Baso % (Auto) 0.4 % 04/01/23 18:11 Neut # (Auto) 5.76 10^3/uL (1.8-7.7) 04/01/23 18:11 Lymph # (Auto) 1.0 10^3/uL (0.8-4.8) 04/01/23 18:11 [place] # (Auto) 0.9 10^3/uL (0.2-0.9) 04/01/23 18:11 Eos # (Auto) 0.1 10^3/uL (0.0-0.8) 04/01/23 18:11 Baso # (Auto) 0.0 10^3/uL (0.0-0.1) 04/01/23 18:11 Nucleated RBC % (auto) 0 % 04/01/23 18:11 Nucleated RBCs # 0.0 /100WBC 04/01/23 18:11 Sodium 137 mmol/L (136-145) 04/01/23 18:11 Potassium 3.0 mmol/L (3.5-5.1) L 04/01/23 18:11 Chloride 103 mmol/L (98-107) 04/01/23 18:11 Carbon Dioxide 22 mmol/L (22-29) 04/01/23 18:11 Anion Gap 15.0 (5-19) 04/01/23 18:11 BUN 13 mg/dL (6-20) 04/01/23 18:11 Creatinine 0.8 mg/dL (0.7-1.2) 04/01/23 18:11 GFR Calculation 100.7 mL/min (90-130) 04/01/23 18:11 Glucose 106 mg/dL (65-115) 04/01/23 18:11 Calculated Osmolality 285 mOsm/kg (285-295) 04/01/23 18:11 Lactic Acid 1.7 mmol/L (0.5-2.2) 04/01/23 18:11 Calcium 8.7 mg/dL (8.5-10.5) 04/01/23 18:11 Total Bilirubin 0.9 mg/dL (0.15-1.2) 04/01/23 18:11 AST 17 U/L (0-40) 04/01/23 18:11 ALT 16 U/L (0-41) 04/01/23 18:11 Alkaline Phosphatase 59 U/L (40-130) 04/01/23 18:11 Total Protein 6.5 g/dL (6.6-8.7) L 04/01/23 18:11 Albumin 4.0 g/dL (3.5-5.2) 04/01/23 18:11 Globulin 2.5 g/dL (1.3-4.6) 04/01/23 18:11 All radiology interpretation(s) finalized by discharge Critical Care Time Critical Care Time: Critical Care Time: Yes Total Critical Care Time: 45 Attestation: The high probability of a clinically significant, sudden or life threatening deterioration of the patient's trauma/neuro system(s) required my full and direct attention, intervention and personal management. The critical care time is as shown. This time is in addition to time spent performing any reported procedures but includes the following: [x] Data and vital sign review and interpretation [x] Patient assessment, examination and intervention [x] Documentation [x] Medication orders and management Discharge Plan Discharge Patient Disposition: Xfer Short-Term Hosp Clinical Impression: Fall, Pneumonia, Subarachnoid hemorrhage Condition: Stable Prescriptions: No Action doxycycline hyclate 100 mg tablet 100 mg PO BID 7 Days Qty: 14 0RF Referrals: Obdulia Rudolph MD [Primary Care Provider] - Coding Level of Care Code ED Optical Glass Wet Inspector for Camila Chery
[2023-04-01 18:24] LABS: Basophils % 0.4 %; Eosinophils # 0.1 10^3/uL (0.0-0.8); Eosinophils % 0.8 %; Hematocrit 35.8 % (37-53); Lymphocytes % 13.2 %; Mean Corpuscular HGB Conc 34.4 g/dL (30-55); Mean Corpuscular Hemoglobin 34.2 pg (27-33); Mean Corpuscular Volume 99.4 fl (82-101); Mean Platelet Volume 9.3 fL (7.4-10.4); Monocytes # 0.9 10^3/uL (0.2-0.9); Monocytes % 11.7 %; Neutrophils # 5.76 10^3/uL (1.8-7.7); Neutrophils % 73.6 %; Nucleated Red Blood Cells % 0 %; Platelet Count 173 10^3/cmm (157-399); Red Cell Distribution Width 11.5 % (12.1-15.1); White Blood Count 7.81 10^3/uL (3.29-11.43)
--- NOTE | 2023-04-01 18:45 | PC.NURSE ---
patient is at the bedside- request to give patient 1800 home med for seizures- this RN spoke with Dr Walker and this med was ok'd to give
[2023-04-01 19:00] LABS: Lactic Sepsis W/Reflex 1.7 mmol/L (0.5-2.2)
[2023-04-01 19:01] LABS: Alanine Aminotransferase 16 U/L (0-41); Alkaline Phosphatase 59 U/L (40-130); Aspartate Amino Transferase 17 U/L (0-40); Blood Urea Nitrogen 13 mg/dL (6-20); Calcium 8.7 mg/dL (8.5-10.5); Carbon Dioxide 22 mmol/L (22-29); Chloride 103 mmol/L (98-107); Creatinine Clr Calc Pharmacy 112.3674; Globulin 2.5 g/dL (1.3-4.6); Glomerular Filtration Rate 100.7 mL/min (90-130); Glucose 106 mg/dL (65-115); Osmolality Calculated 285 mOsm/kg (285-295); Sodium 137 mmol/L (136-145); Total Bilirubin 0.9 mg/dL (0.15-1.2); Total Protein 6.5 g/dL (6.6-8.7)
[2023-04-01] MEDS: azithromycin 500 MG in sodium chloride 0.9% 250 ML 250 MG IV (19:05)
[2023-04-01 19:26] VITALS: BP 161/101; PULSE 93; RESP 20; O2SAT 96
[2023-04-01 20:15] VITALS: PULSE 91; TEMP 39.4; O2SAT 95
[2023-04-01] MEDS: cefTRIAXone 1,000 MG in sodium chloride 0.9% (plus) 50 ML 100 MG IV (20:21)
[2023-04-01] MEDS: acetaminophen 500 mg Tablet 1000 MG PO (20:26)
== END 2023-04-01 21:33 | disposition short-term general hospital (02) ==
PROVIDERS: Emergency Provider Emergency Medicine; PCP Family Medicine
DX: J18.9 Pneumonia, unspecified organism (principal); S06.6XAA Traumatic subarachnoid hemorrhage with loss of consciousness status unknown, initial encounter; W19.XXXA Unspecified fall, initial encounter; Z85.841 Personal history of malignant neoplasm of brain
CPT/HCPCS: 36415; 70450; 71045; 72125; 80053; 83605; 85025; 87040; 96365; 99285; J0456; J0696; J7050

== ENCOUNTER 2023-04-04 14:30 | Outpatient (CLI) | payer OTHER, SELFPAY ==
--- NOTE | 2023-04-04 | CT_ITS ---
WS: [id number] CT HEAD TECHNIQUE: Noncontrast CT of the head obtained from the skullbase to the vertex. CLINICAL INFORMATION: F/U BRAIN BLEED COMPARISON: 04/01/2023 DLP: 1099.[address] scans at [facility] use at least one of these dose optimization techniques: automated e xposure control; mA and/or kV adjustment per patient size (includes targeted exams where dose is matc hed to clinical indication); or iterative reconstruction. FINDINGS: Previous postoperative changes LEFT frontoparietal craniotomy with chronic appearing postoperative ch anges involving the occipital calvarium with partial craniectomy. Diffuse subcortical edema involving the LEFT frontal and parietal lobes extending to the LEFT temporal lobe is similar in appearance com pared to previous. No evidence of progressive edema. Persistent mass LEFT lateral ventricle with LEFT RIGHT midline shift measuring 4.3 mm stable in appea anthony. Partial effacement of the ambient cisterns unchanged. Suspected LEFT temporal lobe lesion is u nchanged in appearance. Presumed treated LEFT frontoparietal lesion demonstrates increased attenuatio n within the resection cavity likely due to mineralization. Mineralization extending along the accounting instructor ior horn LEFT lateral ventricle likely due to radiation therapy. No evidence of new or progressed blo od products. No supratentorial extra-axial fluid collections. Stable retrocerebellar CSF attenuation arachnoid cys t with encephalomalacia involving the vermis and cerebellar hemispheres. Fourth ventricle remains pat ent. No other additional changes compared to previous. IMPRESSION: 1. No evidence of new or progressed hemorrhage. 2. Increased attenuation within the LEFT frontoparietal resection cavity and LEFT posterior horn lat eral ventricle likely due to mineralization from treatment-related changes. 3. Diffuse subcortical edema involving the LEFT temporal and frontal parietal lobes with mass effect on the LEFT lateral ventricle unchanged. LEFT RIGHT midline shift measuring 4.3 mm. 4. Stable suspected low-attenuation LEFT temporal lesion. 5. Prior postoperative changes LEFT parietal craniotomy with chronic postoperative changes in the po sterior fossa. 6. Stable retrocerebellar arachnoid cyst with encephalomalacia involving the vermis and cerebellum.
== END 2023-04-04 14:31 | disposition home or self-care (01) ==
LOC: RAD 14:33
PROVIDERS: PCP Family Medicine; Visit Provider Internal Medicine
DX: I60.9 Nontraumatic subarachnoid hemorrhage, unspecified (principal); Z98.890 Other specified postprocedural states
CPT/HCPCS: 70450

== ENCOUNTER 2023-04-22 12:23 | Outpatient (CLI) | payer OTHER, SELFPAY ==
--- NOTE | 2023-04-22 12:28 | MR_ITS ---
WS: [id number] MRI HEAD WITH CONTRAST TECHNIQUE: Sagittal T1, T2 axial, T2 axial FLAIR, axial susceptibility weighted imaging, axial diffus ion weighted images, and coronal T2 images were obtained. Pre and post-T1 axial and post T1 coronal i mages. ADC and FSPGR images. CLINICAL INFORMATION: GLIOBLASTOMA COMPARISON: CT head 04/04/2023 and 04/01/2023 No prior MRI comparisons available FINDINGS: No evidence of restricted diffusion to suggest acute ischemia. Ventricular system and basilar cistern s are patent. Previously described postoperative changes LEFT frontoparietal craniotomy with resectio n cavities in the superior temporal lobe and frontal parietal junction extending to the occipital hor n. No evidence of new or progressed hemorrhage. Susceptibility artifact in the resection cavity likel y represents mineralization from prior radiation treatment related changes. Diffuse subcortical edema involving the LEFT frontal parietal deep white matter extending into the LE FT temporal lobe. Mass effect on the LEFT lateral ventricle and LEFT occipital horn. Mass effect on t he LEFT lateral ventricle appears improved. Residual distortion and compression of the LEFT atrium an d temporal occipital horn. Associated T1 hyperintensity compatible with laminar necrosis about the re section cavity. Diffuse peripheral enhancement about the resection cavity likely postoperative. Focal nodular area of enhancement measuring 8 mm along the LEFT parahippocampal gyrus suspicious for recur rent or residual focal disease in this location. Comparison with prior studies recommended. No other focal nodular areas of enhancement. Remote appearing postoperative changes involving the occipital calvarium with volume loss in the cere bellar vermis and hemispheres. Normal vascular flow voids at the skull base. No extra-axial fluid collections. Paranasal sinuses and mastoid air cells are well aerated. IMPRESSION: 1. No evidence of new or progressive subarachnoid hemorrhage. Susceptibility artifact in the resec tion cavity likely represents mineralization as seen on the most recent CT 2. LEFT frontal parietal craniotomy with resection cavity LEFT frontal parietal junction extending t o the ventricle and extending into the superior LEFT temporal lobe. Peripheral enhancement about the resection cavity with fluid and blood products in the resection cavity. 3. Focal nodular area of enhancement along the LEFT parahippocampal gyrus suspicious for residual or recurrent focus of disease measuring 8 mm. 4. Persistent mass effect on the LEFT atrium and LEFT temporal and occipital horns unchanged since t he prior CTs. No progressive hydrocephalus. 5. Mass effect on the LEFT lateral ventricle has improved. 6. Stable diffuse edema in the deep LEFT frontoparietal white matter extending into the LEFT tempora l lobe about the resection cavities. 7. Nonenhancing T2 signal abnormality extends across the splenium of the corpus callosum into the RI GHT periventricular white matter.
[2023-04-22] MEDS: gadobenate dimeglumine 20 mL vial IV (13:25)
== END 2023-04-22 12:24 | disposition home or self-care (01) ==
LOC: RAD 12:24
PROVIDERS: PCP Family Medicine; Visit Provider Internal Medicine
DX: C71.9 Malignant neoplasm of brain, unspecified (principal)
CPT/HCPCS: 70553; A9577

== ENCOUNTER 2023-08-11 10:22 | Emergency (ER) | payer OTHER, SELFPAY ==
[2023-08-11] VITALS (12 sets, daily range): BP systolic 121–166; BP diastolic 86–103; PULSE 53–87; RESP 15–18; TEMP 36.4; O2SAT 95–100; BMI 26.4
--- NOTE | 2023-08-11 10:33 | ED_ITS ---
HPI - Abdominal Pain 2 General: Chief Complaint: Abdominal Pain Stated Complaint: abd pain, N Time Seen by Provider: 08/11/23 10:32 Source: patient and family Mode of arrival: ambulatory Limitations: no limitations History of Present Illness: Patient is a nice 53-year-old male with a history of a glioblastoma here along with his for complaints of abdominal pain. states this morning around 9 AM patient began complaining of fairly acute onset back pain. Patient states it was across his lower back but feels like it was more so to the right side. He states after that he began having some lower abdominal pain and felt like he needed to defecate but could not. Back pain subsided and now left with lower abdominal pain mainly on the right side. He did have a normal bowel movement yesterday. He states he feels nauseous. states when back pain came on he acted like he had a fever and was removing his shirt trying to get comfortable . Patient upon arrival is seemingly in NAD. He arrives with stable vital signs. No chest pain/SOB. Denies lower extremity pain/swelling. No urinary symptoms. No history of nephrolithiasis. Previous abdominal surgeries include a cholecystectomy (about 1.5 months ago) and two hernia repairs. MD elicited complaint: abdominal pain Onset (ago): hour(s) Pain Consistency: constant Location: Suprapubic Severity: moderate Radiation: none Migration to: no migration Exacerbating factors: nothing Relieving factors: nothing Associated Symptoms: Reports nausea; Denies change in bowel habits, chills, diarrhea, dysuria, fever(s), hematochezia, hematuria, melena, syncope and vomiting Review of Systems 2 Const: Denies: fever(s), chills, body aches, fatigue or malaise Card: Denies: chest pain, palpitations, irregular heart rhythm, edema, swelling of feet/ankles, lightheadedness, syncope, pre-syncope, dyspnea on exertion or orthopnea Resp: Denies: dyspnea, productive cough or non-productive cough GI: Reports: abdominal pain and nausea; Denies: vomiting, diarrhea, change in bowel habits, hematochezia or melena : Denies: flank pain, dysuria or hematuria Musc: Reports: back pain; Denies: neck pain, extremity pain, extremity swelling, joint pain or joint swelling Skin/Breast: Denies: rash Neuro: Denies: headache(s), numbness in extremities, weakness in extremities or sensory changes PFSH ED 2 PFSH: Medical History Glioblastoma Physical Exam 2 Const: COMMON NORMALS: no acute distress, average body habitus, patient oriented x3, no limitations, healthy appearing, alert and well nourished O RIENTATION/CONSCIOUSNESS: Yes awake, Yes oriented to person, Yes oriented to place and Yes oriented to time Eye: COMMON NORMALS: no scleral icterus Neck/C-Spine: COMMON NORMALS: no JVD Chest: COMMONS NORMALS: normal inspection of the chest and normal palpation of entire chest wall Resp: COMMON NORMALS: normal respiratory effort and clear to auscultation bilaterally AUSCULTATION: clear to auscultation bilaterally Cardio: COMMON NORMALS: no JVD, regular rate and regular rhythm RATE: r egular rate RHYTHM: regular rhythm GI: COMMON NORMALS: Normal to inspection, nondistended, normoactive bowel sounds present, Soft to palpation, No hepatosplenomegaly present and no masses INSPECTION: Yes normal to inspection and Yes scar (cholecystectomy trocar incisions appear to be healing well) PALPATION: Yes Soft to palpation, Yes Tenderness to palpation present (GI) (across lower abdomen mainly to R lower), No Guarding due to palpation present (GI), No Rigid due to palpation and Yes No hepatosplenomegaly present : COMMON NORMALS: Yes no CVA tenderness BLADDER/KIDNEY EXAM: Yes no CVA tenderness Back/Pelvis: COMMON NORMALS: no CVA tenderness, thoracic and lumbar spine normal to inspection, thoraco-lumbar ROM normal and straight leg raise negative bilaterally THORACIC SPINE/UPPER BACK: No thoracic spinal tenderness and No paraspinal muscle tenderness LUMBAR SPINE/LOWER BACK: No lumbar spinal tenderness and Yes other soft tissue findings (reports slight pain to R lower back) Extremity: COMMON NORMALS: normal to inspection, capillary refill normal, no joint enlargement, no clubbing, cyanosis or edema, no calf tenderness and no pedal edema GENERAL: Yes normal exam except as noted Neuro: ANALY COMA SCALE: document GCS findings Analy coma scale eye opening: Spontaneous Analy coma scale verbal response: Orientated Grant coma scale motor response: Obey commands Analy coma scale total score: 15 COMMON NORMALS: patient oriented x3, moves all extremities, no focal motor deficits and no sensory deficits noted SENSORIUM/ORIENTATION: Yes alert, Yes oriented to person, Yes oriented to place and Yes oriented to time Skin: COMMON NORMALS: no rashes or lesions noted GENERAL SKIN EXAM: no rashes or lesions noted Course 2 Vital Signs: Vital signs: Vital Signs Temperature 97.5 F L 08/11/23 10:27 Pulse Rate 54 L 08/11/23 14:30 Respiratory Rate 18 08/11/23 14:00 Blood Pressure 128/86 08/11/23 14:30 Pulse Oximetry 96 08/11/23 14:30 Oxygen Delivery Me thod Room Air 08/11/23 14:30 MDM - Abdominal Pain Medical Decision Making Patient's blood work is unremarkable. His UA positive for hematuria. CT imaging obtained which shows most likely a 2 mm distal right ureter stone. Radiologist did comment that because of the IV contrast this could potentially be an enhancing uroepithelial lesion although this was less likely. I think given his history of acute onset right-sided back and abdominal pain coupled with the hematuria this most likely is a stone. He was provided IV Toradol which greatly helped with his discomfort. Patient will be placed on Flomax and pain/nausea meds and given a urinary strainer and he will follow-up with urology. Case management referral placed for this. Return ED precautions given. Medical Records I reviewed the patient's medical records. Lab Data I reviewed the patient's lab results. 08/11/23 10:43 08/11/23 10:43 Labs/Radiology: Laboratory Results WBC 9.58 10^3/uL (3.29-11.43) 08/11/23 10:43 RBC 5.12 10^6/uL (3.85-5.65) 08/11/23 10:43 Hgb 16.70 g/dL (11.27-16.99) 08/11/23 10:43 Hct 49.7 % (37-53) 08/11/23 10:43 MCV 97.1 fl (82-101) 08/11/23 10:43 MCH 32.6 pg (27-33) 08/11/23 10:43 MCHC 33.6 g/dL (30-55) 08/11/23 10:43 RDW 12.3 % (12.1-15.1) 08/11/23 10:43 Plt Count 233 10^3/cmm (157-399) 08/11/23 10:43 MPV 9.2 fL (7.4-10.4) 08/11/23 10:43 Neut % (Auto) 84.6 % 08/11/23 10:43 Lymph % (Auto) 10.0 % 08/11/23 10:43 [place] % (Auto) 4.6 % 08/11/23 10:43 Eos % (Auto) 0.2 % 08/11/23 10:43 Baso % (Auto) 0.2 % 08/11/23 10:43 Neut # (Auto) 8.10 10^3/uL (1.8-7.7) H 08/11/23 10:43 Lymph # (Auto) 1.0 10^3/uL (0.8-4.8) 08/11/23 10:43 [place] # (Auto) 0.4 10^3/uL (0.2-0.9) 08/11/23 10:43 Eos # (Auto) 0.0 10^3/uL (0.0-0.8) 08/11/23 10:43 Baso # (Auto) 0.0 10^3/uL (0.0-0.1) 08/11/23 10:43 Nucleated RBC % (auto) 0 % 08/11/23 10:43 Nucleated RBCs # 0.0 /100WBC 08/11/23 10:43 Sodium 140 mmol/L (136-145) 08/11/23 10:43 Potassium 4.4 mmol/L (3.5-5.1) 08/11/23 10:43 Chloride 101 mmol/L (98-107) 08/11/23 10:43 Carbon Dioxide 25 mmol/L (22-29) 08/11/23 10:43 Anion Gap 18.4 (5-19) 08/11/23 10:43 BUN 18 mg/dL (6-20) 08/11/23 10:43 Creatinine 0.9 mg/dL (0.7-1.2) 08/11/23 10:43 GFR Calculation 87.6 mL/min (90-130) L 08/11/23 10:43 Glucose 141 mg/dL (65-115) H 08/11/23 10:43 Calculated Osmolality 294 mOsm/kg (285-295) 08/11/23 10:43 Calcium 9.9 mg/dL (8.5-10.5) 08/11/23 10:43 Total Bilirubin 0.3 mg/dL (0.15-1.2) 08/11/23 10:43 AST 22 U/L (0-40) 08/11/23 10:43 ALT 26 U/L (0-41) 08/11/23 10:43 Alkaline Phosphatase 71 U/L (40-130) 08/11/23 10:43 Total Protein 8.1 g/dL (6.6-8.7) 08/11/23 10:43 Albumin 4.9 g/dL (3.5-5.2) 08/11/23 10:43 Globulin 3.2 g/dL (1.3-4.6) 08/11/23 10:43 Lipase 27 U/L (13-60) 08/11/23 10:43 Urine Color Yellow (Yellow) 08/11/23 13:58 Urine Appearance Hazy (CLEAR) A 08/11/23 13:58 Urine pH 7 (5-7) 08/11/23 13:58 Ur Specific [place] 1.010 (1.005-1.030) 08/11/23 13:58 Urine Protein 1+ (Negative) H 08/11/23 13:58 Urine Glucose (UA) Norm (Normal) 08/11/23 13:58 Urine Ketones Negative (Negative) 08/11/23 13:58 Urine Blood 3+ (Negative) H 08/11/23 13:58 Urine Nitrate Negative (Negative) 08/11/23 13:58 Urine Bilirubin 1+ (Negative) H 08/11/23 13:58 Urine Urobilinogen 1 mg/dL (Negative) H 08/11/23 13:58 Ur Leukocyte Esterase Trace (Negative) H 08/11/23 13:58 Urine RBC >100 /hpf (0-2) H 08/11/23 13:58 Urine WBC 0-4 /hpf (0-5) H 08/11/23 13:58 Ur Squamous Epith Cells 0-4 /hpf (0-5) H 08/11/23 13:58 Amorphous Sediment Not Reportable 08/11/23 13:58 Urine Bacteria 1+ /hpf (NONE) H 08/11/23 13:58 Urine Mucus 1+ /hpf 08/11/23 13:58 All radiology interpretation(s) finalized by discharge Discharge Plan Discharge Patient Disposition: Home Clinical Impression: Calculus of distal right ureter Condition: Stable Prescriptions: New hydrocodone-acetaminophen 5-325 mg tablet 1 tab PO Q6H PRN (Reason: pain) Qty: 14 0RF Flomax 0.4 mg capsule 0.4 mg PO DAILY Qty: 10 0RF ondansetron 4 mg tablet,disintegrating 4 mg PO Q8H PRN (Reason: nausea and vomiting) Qty: 14 0RF No Action levetiracetam 500 mg Tablet 500 mg PO BID dexamethasone 4 mg Tablet 4 mg PO QAM Discharge Orders: Discharge ED (Routine); Ordered 08/11/23 Ordered By: Yodit Fonseca Referrals: Obdulia Rudolph MD [Primary Care Provider] - Patient Instructions: Ureteral Stones (ED), Opioid Safety, Pain Management Activity Restrictions/Additional Instructions: As we discussed we will refer him to urology for further evaluation. He needs to drink plenty of fluids and attempts to pass/flush the stone out. Begin straining his urine and bring any passed stones with you to your follow-up urology appointment. Case management should contact him shortly to help set him up with this appointment. As we discussed he needs to return to the emergency department for worsening pain, repetitive episodes of vomiting, inability to hold down his medications, fevers, or any other concerns you may have. I hope he begins to feel better soon. Coding Level of Care Code ED Cardiovascular Invasive Specialist for Camila Chery
[2023-08-11 10:51] LABS: Basophils % 0.2 %; Eosinophils % 0.2 %; Hematocrit 49.7 % (37-53); Mean Corpuscular HGB Conc 33.6 g/dL (30-55); Mean Corpuscular Hemoglobin 32.6 pg (27-33); Mean Corpuscular Volume 97.1 fl (82-101); Mean Platelet Volume 9.2 fL (7.4-10.4); Monocytes # 0.4 10^3/uL (0.2-0.9); Monocytes % 4.6 %; Neutrophils % 84.6 %; Nucleated Red Blood Cells % 0 %; Platelet Count 233 10^3/cmm (157-399); Red Blood Count 5.12 10^6/uL (3.85-5.65); Red Cell Distribution Width 12.3 % (12.1-15.1); White Blood Count 9.58 10^3/uL (3.29-11.43)
--- NOTE | 2023-08-11 11:00 | CT_ITS ---
WS: [id number] CT ABDOMEN AND PELVIS WITH CONTRAST HISTORY: abdominal/back pain TECHNIQUE: Imaging performed of the abdomen and pelvis with IV contrast. Single phase imaging of the abdomen. Coronal and sagittal reformats are submitted. All CT scans at [facility] use at [address] one of these dose optimization techniques: automated exposure control; mA and/or kV adjustment per patient size (includes targeted exams where dose is matched to clinical indication); or iterative re construction. IV CONTRAST: Omnipaque 350; 100 mL IV. Oral contrast: No DLP: 605.03 mGy.cm COMPARISON: None available. Lower thorax: Lung bases are clear. Heart is normal size. No hiatal hernia. Liver/biliary system: Normal size liver. There are numerous subcentimeter low-attenuation masses with in the liver. These are most likely cysts. There is a larger cyst measuring 2.0 x 1.7 cm in the infer ior RIGHT lobe. No bile duct dilatation. Normal portal vein. Gallbladder: Prior cholecystectomy. Pancreas: Normal size pancreas and pancreatic duct. No adjacent inflammation. Spleen: Normal size spleen. No mass or infarct. Adrenal glands: Normal. Right kidney: Normal size RIGHT kidney. There are multiple low-attenuation masses. The largest is a c yst measuring 2.6 x 2.5 cm. Some of these low-attenuation cortical masses are too small to characteri ze. There is very slight dilatation of the renal pelvis and ureter. In the very distal RIGHT ureter t here is a focal area of increased density measuring 2 mm which is most likely a small ureteral stone causing the obstruction. Left kidney: No obstruction. Several low-attenuation masses. The largest from the upper pole measures 3.4 x 3.6 cm. Normal sized ureter. Aorta: Moderate atherosclerosis with no aneurysm. Lymphadenopathy: None. Free fluid: None. GI tract: Normal stomach. No small bowel obstruction. Normal appendix. Normal colon. Abdominal wall: Unremarkable abdominal wall. No hernia. Pelvis: No free fluid or adenopathy. Well distended urinary bladder. Mild heterogeneity and enlargeme nt of the prostate gland. Bones: Unremarkable. IMPRESSION: 1. Normal appendix. 2. Subtle area of increased density in the distal RIGHT ureter with very minimal more proximal dilat ation of the ureter. Very tiny stones or sludge suspected causing the ureteral dilatation. As this st udy was performed with IV contrast this could potentially be an enhancing ureteral uroepithelial lesi on although thought less likely. 3. Numerous bilateral renal cysts and hepatic cysts. 4. Moderate atherosclerosis aorta. 5. Prior cholecystectomy. 6. No colitis.
[2023-08-11 11:08] LABS: Alanine Aminotransferase 26 U/L (0-41); Albumin Level 4.9 g/dL (3.5-5.2); Alkaline Phosphatase 71 U/L (40-130); Anion Gap 18.4 (5-19); Aspartate Amino Transferase 22 U/L (0-40); Blood Urea Nitrogen 18 mg/dL (6-20); Calcium 9.9 mg/dL (8.5-10.5); Carbon Dioxide 25 mmol/L (22-29); Chloride 101 mmol/L (98-107); Creatinine Clr Calc Pharmacy 98.2448; Globulin 3.2 g/dL (1.3-4.6); Glomerular Filtration Rate 87.6 mL/min (90-130); Glucose 141 mg/dL (65-115); Lipase 27 U/L (13-60); Osmolality Calculated 294 mOsm/kg (285-295); Potassium 4.4 mmol/L (3.5-5.1); Sodium 140 mmol/L (136-145); Total Bilirubin 0.3 mg/dL (0.15-1.2); Total Protein 8.1 g/dL (6.6-8.7)
--- NOTE | 2023-08-11 11:21 | PC.PHAR ---
SPOUSE HAD A LIST OF PT MEDS. LEVETIRACETAM IS NOW 500 MG TWICE DAILY AND DEXAMETHAZONE IS 4 MG DAILY.
[2023-08-11] MEDS: morphine 4 mg/mL SDV 1 mL IVP (11:29)
[2023-08-11] MEDS: ondansetron 2 mg/ML SDV 2 mL 4 MG IVP (11:32)
[2023-08-11] MEDS: iohexol 350 mg/mL 500 mL Btl (per mL) IV (11:50)
[2023-08-11] MEDS: ketorolac 30 mg/mL INJ IVP (12:40)
[2023-08-11] MEDS: sodium chloride 0.9% 1,000 ML 999 ML IV (13:16)
[2023-08-11 14:39] LABS: Add Urine Microscopic? YES; Bilirubin Urine 1+ (Negative); Blood Urine 3+ (Negative); Glucose Urine UA Norm (Normal); Ketones Urine Negative (Negative); Leukocyte Esterase Urine Trace (Negative); Nitrate Urine Negative (Negative); Protein Urine 1+ (Negative); Urine Appearance Hazy (CLEAR); Urine Color Yellow (Yellow); Urobilinogen Urine 1 mg/dL (Negative); pH Urine 7 (5-7)
[2023-08-11 14:40] LABS: RBC Urine >100 /hpf (0-2)
[2023-08-11 14:41] LABS: Add Urine Culture? Yes; Bacteria Urine 1+ /hpf; Mucus Urine 1+ /hpf; Squamous Epithelial Cell Urine 0-4 /hpf (0-5); WBC Urine 0-4 /hpf (0-5)
--- NOTE | 2023-08-11 15:01 | DCPLANNER ---
I faxed patients chart to [facility] on 08/11/23 at [phone]. Clinic to contact patient. Faxed to [phone]
== END 2023-08-11 15:03 | disposition home or self-care (01) ==
PROVIDERS: Emergency Provider Physician Assistant; PCP Family Medicine
DX: N20.1 Calculus of ureter (principal)
CPT/HCPCS: 74177; 80053; 81001; 83690; 85025; 87086; 96361; 96374; 96375; 99285; J1885; J2270; J2405; J7030; Q9967

== ENCOUNTER 2023-08-18 17:04 | Emergency (ER) | payer OTHER, SELFPAY ==
[2023-08-18 17:21] VITALS: BP 137/92; PULSE 95; RESP 16; TEMP 36.6; O2SAT 97; BMI 25.4
--- NOTE | 2023-08-18 17:31 | CTR_ITS ---
PROCEDURE INFORMATION: Exam: CT Neck With Contrast Exam date and time: 08/18/2023 6:39 PM Age: 53 years old Clinical indication: Dysphagia / difficulty swallowing TECHNIQUE: Imaging protocol: Computed tomography of the neck with contrast. Radiation optimization: All CT scans at this facility use at least one of these dose optimization techniques: automated exposure control; mA and/or kV adjustment per patient size (includes targeted exams where dose is matched to clinical indication); or iterative reconstruction. Contrast material: OMNI 350; Contrast volume: 100 ml; Contrast route: INTRAVENOUS (IV); COMPARISON: CT cervical spin wo con* [id number] 04/01/2023 6:48 PM RADIATION DOSE METRICS: Total DLP (mGy-cm): 205 FINDINGS: Pharynx: Unremarkable. No significant tonsillar enlargement. Larynx: Unremarkable. Epiglottis is normal. Prevertebral and retropharyngeal spaces: Unremarkable. Salivary glands: Normal. Glands are normal in size. Thyroid: Normal. No enlarged or calcified nodules. Lymph nodes: Unremarkable. No lymphadenopathy. Trachea: Visualized trachea is unremarkable. Lungs: Unremarkable as visualized. Bones/joints: Mild degenerative disc disease at C5-C6 and C6-C7. Soft tissues: Unremarkable. No significant soft tissue swelling. Other findings: Postsurgical changes at the occiput redemonstrated. CT/CT neck w con* [id number] IMPRESSION: No acute findings.
--- NOTE | 2023-08-18 17:31 | CTR_ITS ---
PROCEDURE INFORMATION: Exam: CT Head Without Contrast Exam date and time: 08/18/2023 6:39 PM Age: 53 years old Clinical indication: Pain; Headache; Prior surgery; Surgery date: 6+ months; Surgery type: Brain tumor; Additional info: Burnett/ weakness TECHNIQUE: Imaging protocol: Computed tomography of the head without contrast. Radiation optimization: All CT scans at this facility use at least one of these dose optimization techniques: automated exposure control; mA and/or kV adjustment per patient size (includes targeted exams where dose is matched to clinical indication); or iterative reconstruction. COMPARISON: MR head wo/w con [id number] 04/22/2023 12:50 PM RADIATION DOSE METRICS: Total DLP (mGy-cm): 1143 FINDINGS: Brain: Evolving postsurgical changes with the previously described mineralization in the left temporoparietal lobe with adjacent vasogenic edema which appears to have decreased slightly since the prior examination. No new or enlarging subarachnoid hemorrhage. 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 Cerebral ventricles: The mass effect on the left lateral ventricle has improved significantly from the prior examination with resolution the previously seen [id number] midline shift. Paranasal sinuses: Visualized sinuses are unremarkable. No fluid levels. Mastoid air cells: Visualized mastoid air cells are well aerated. Bones/joints: Left fronto parietal craniotomy. Soft tissues: Unremarkable. CT/CT head wo con* [id number] IMPRESSION: 1. Evolving postsurgical changes with the previously described mineralization in the left temporoparietal lobe redemonstrated with decreased adjacent vasogenic edema and resolution of the previously seen [id number] midline shift and mass effect on the adjacent left lateral ventricle. 2. No new or enlarging subarachnoid hemorrhage. 3. Remainder similar.
--- NOTE | 2023-08-18 17:39 | W.ED.GENADLT ---
HPI - General Adult General: Chief complaint: General Medical Stated complaint: difficulty swallowing Time Seen by Provider: 08/18/23 17:26 Source: patient Mode of arrival: ambulatory Limitations: no limitations History of Present Illness: 53-year-old male with a history of glioblastoma states he had a recent CT that showed it spreading he states that over the last 2 days he has had some difficulty swallowing states he has to hold his chin down to be able to swallow denies any vomiting has had some increased slight weakness denies any fevers. Associated symptoms: Deny chest pain, dyspnea, headache(s), nausea, rash or vomiting Review of Systems Const: Denies: fever(s) or chills ENMT: Denies: throat pain or dental pain Card: Denies: chest pain Resp: Denies: dyspnea GI: Denies: abdominal pain, nausea, vomiting or diarrhea Musc: Denies: neck pain or back pain Skin/Breast: Denies: rash Neuro: Reports: difficulty walking; Denies: headache(s) PFS ED PFSH: Medical History Glioblastoma Course Vital Signs: Vital signs: Vital Signs Temperature 97.8 F 08/18/23 17:21 Pulse Rate 72 08/18/23 19:04 Respiratory Rate 16 08/18/23 19:04 Blood Pressure 132/98 08/18/23 19:04 Pulse Oximetry 97 08/18/23 19:04 Oxygen Delivery Me thod Room Air 08/18/23 19:04 MDM - General Adult Medical Decision Making Patient presents for some difficulty swallowing states he has been able to swallow but it has been difficult he is handling secretions well imaging here is normal he has appointment his oncology on Friday informed he does need to have a swallow study he is to do an all liquid diet. Follow-up Friday with his oncology team return if worsening Medical Records I reviewed the patient's medical records. Lab Data I reviewed the patient's lab results. 08/18/23 17:50 08/18/23 17:[address] 08/18/23 17:31 IMPRESSION: 1. Evolving postsurgical changes with the previously described mineralization in the left temporoparietal lobe redemonstrated with decreased adjacent vasogenic edema and resolution of the previously seen [id number] midline shift and mass effect on the adjacent left lateral ventricle. 2. No new or enlarging subarachnoid hemorrhage. 3. Remainder similar. Neck CT 08/18/23 17:31 IMPRESSION: No acute findings. Laboratory Results WBC 12.48 10^3/uL (3.29-11.43) H 08/18/23 17:50 RBC 4.95 10^6/uL (3.85-5.65) 08/18/23 17:50 Hgb 16.10 g/dL (11.27-16.99) 08/18/23 17:50 Hct 45.8 % (37-53) 08/18/23 17:50 MCV 92.5 fl (82-101) 08/18/23 17:50 MCH 32.5 pg (27-33) 08/18/23 17:50 MCHC 35.2 g/dL (30-55) 08/18/23 17:50 RDW 12.2 % (12.1-15.1) 08/18/23 17:50 Plt Count 232 10^3/cmm (157-399) 08/18/23 17:50 MPV 9.4 fL (7.4-10.4) 08/18/23 17:50 Neut % (Auto) 76.2 % 08/18/23 17:50 Lymph % (Auto) 8.6 % 08/18/23 17:50 [place] % (Auto) 11.3 % 08/18/23 17:50 Eos % (Auto) 0.2 % 08/18/23 17:50 Baso % (Auto) 0.2 % 08/18/23 17:50 Neut # (Auto) 9.50 10^3/uL (1.8-7.7) H 08/18/23 17:50 Lymph # (Auto) 1.1 10^3/uL (0.8-4.8) 08/18/23 17:50 [place] # (Auto) 1.4 10^3/uL (0.2-0.9) H 08/18/23 17:50 Eos # (Auto) 0.0 10^3/uL (0.0-0.8) 08/18/23 17:50 Baso # (Auto) 0.0 10^3/uL (0.0-0.1) 08/18/23 17:50 Nucleated RBC % (auto) 0 % 08/18/23 17:50 Nucleated RBCs # 0.0 /100WBC 08/18/23 17:50 Sodium 133 mmol/L (136-145) L 08/18/23 17:50 Potassium 4.1 mmol/L (3.5-5.1) 08/18/23 17:50 Chloride 100 mmol/L (98-107) 08/18/23 17:50 Carbon Dioxide 22 mmol/L (22-29) 08/18/23 17:50 Anion Gap 15.1 (5-19) 08/18/23 17:50 BUN 18 mg/dL (6-20) 08/18/23 17:50 Creatinine 0.5 mg/dL (0.7-1.2) L 08/18/23 17:50 GFR Calculation 172.6 mL/min (90-130) H 08/18/23 17:50 Glucose 93 mg/dL (65-115) 08/18/23 17:50 Calculated Osmolality 278 mOsm/kg (285-295) L 08/18/23 17:50 Calcium 8.9 mg/dL (8.5-10.5) 08/18/23 17:50 Total Bilirubin 0.2 mg/dL (0.15-1.2) 08/18/23 17:50 AST 14 U/L (0-40) 08/18/23 17:50 ALT 26 U/L (0-41) 08/18/23 17:50 Alkaline Phosphatase 54 U/L (40-130) 08/18/23 17:50 Total Protein 6.4 g/dL (6.6-8.7) L 08/18/23 17:50 Albumin 4.1 g/dL (3.5-5.2) 08/18/23 17:50 Globulin 2.3 g/dL (1.3-4.6) 08/18/23 17:50 All radiology interpretation(s) finalized by discharge Discharge Plan Discharge Patient Disposition: Home Clinical Impression: Glioblastoma, Difficulty in swallowing Condition: Stable Prescriptions: No Action levetiracetam 500 mg Tablet 500 mg PO BID dexamethasone 4 mg Tablet 4 mg PO QAM hydrocodone-acetaminophen 5-325 mg tablet 1 tab PO Q6H PRN (Reason: pain) Qty: 14 0RF Flomax 0.4 mg capsule 0.4 mg PO DAILY Qty: 10 0RF ondansetron 4 mg tablet,disintegrating 4 mg PO Q8H PRN (Reason: nausea and vomiting) Qty: 14 0RF Discharge Orders: Discharge ED (Routine); Ordered 08/18/23 Ordered By: Larissa Walker Referrals: Obdulia Rudolph MD [Primary Care Provider] - Discharge Diet: Advance as tolerated Discharge Activity: Resume usual activity Patient Instructions: Dysphagia (ED) Coding Level of Care Code ED Hang Gliding Instructor for Camila Chery
[2023-08-18 17:56] LABS: Basophils % 0.2 %; Eosinophils % 0.2 %; Hematocrit 45.8 % (37-53); Lymphocytes # 1.1 10^3/uL (0.8-4.8); Lymphocytes % 8.6 %; Mean Corpuscular HGB Conc 35.2 g/dL (30-55); Mean Corpuscular Hemoglobin 32.5 pg (27-33); Mean Corpuscular Volume 92.5 fl (82-101); Mean Platelet Volume 9.4 fL (7.4-10.4); Monocytes # 1.4 10^3/uL (0.2-0.9); Monocytes % 11.3 %; Neutrophils % 76.2 %; Nucleated Red Blood Cells % 0 %; Platelet Count 232 10^3/cmm (157-399); Red Blood Count 4.95 10^6/uL (3.85-5.65); Red Cell Distribution Width 12.2 % (12.1-15.1); White Blood Count 12.48 10^3/uL (3.29-11.43)
[2023-08-18 18:16] LABS: Alanine Aminotransferase 26 U/L (0-41); Albumin Level 4.1 g/dL (3.5-5.2); Alkaline Phosphatase 54 U/L (40-130); Anion Gap 15.1 (5-19); Aspartate Amino Transferase 14 U/L (0-40); Blood Urea Nitrogen 18 mg/dL (6-20); Calcium 8.9 mg/dL (8.5-10.5); Carbon Dioxide 22 mmol/L (22-29); Chloride 100 mmol/L (98-107); Globulin 2.3 g/dL (1.3-4.6); Glomerular Filtration Rate 172.6 mL/min (90-130); Glucose 93 mg/dL (65-115); Osmolality Calculated 278 mOsm/kg (285-295); Potassium 4.1 mmol/L (3.5-5.1); Sodium 133 mmol/L (136-145); Total Bilirubin 0.2 mg/dL (0.15-1.2); Total Protein 6.4 g/dL (6.6-8.7)
[2023-08-18] MEDS: iohexol 350 mg/mL 500 mL Btl (per mL) IV (18:51)
[2023-08-18 19:04] VITALS: BP 132/98; PULSE 72; RESP 16; O2SAT 97
[2023-08-18] MEDS: dexamethasone 10 mg/mL INJ IVP (19:49)
[2023-08-18 19:52] VITALS: BP 134/97; PULSE 76; RESP 16; O2SAT 97
== END 2023-08-18 19:56 | disposition home or self-care (01) ==
PROVIDERS: Emergency Provider Emergency Medicine; PCP Family Medicine
DX: C71.9 Malignant neoplasm of brain, unspecified (principal); R13.10 Dysphagia, unspecified
CPT/HCPCS: 70450; 70491; 80053; 85025; 96374; 99285; J1100; Q9967